=== PATIENT | male | born 1970 ===

== ENCOUNTER 2017-08-14 04:11 | Emergency (ER) | payer SELFPAY ==
--- NOTE | 2017-08-14 04:36 | ED PDOC ---
HPI: Psych/Substance Abuse Time Seen by Provider: 08/14/17 04:18 Chief Complaint (Nursing): Alcohol Ingestion Chief Complaint (Provider): Alcohol ingestion History Per: Patient History/Exam Limitations: no limitations Onset/Duration Of Symptoms: Hrs (prior to arrival) Additional History Per: EMS Additional Complaint(s): Rudy Medina is a 46 year old male, with no past medical history, who was brought to the emergency department for evaluation of alcohol use. Patient claims that he drank much earlier in the night and states that EMS picked him up since he is homeless and its raining. Patient denies any medical complaints. PMD: None provided. Past Medical History Reviewed: Historical Data, Nursing Documentation, Vital Signs Vital Signs: Last Vital Signs Temp 97.9 F 08/14/17 04:21 Pulse 72 08/14/17 04:21 Resp 17 08/14/17 04:21 BP 146/90 08/14/17 04:21 Pulse Ox 98 08/14/17 04:21 - Family History Family History: States: Unknown Family Hx - Social History Alcohol: Social - Allergies Allergies/Adverse Reactions: Allergies Allergy/AdvReac Type Severity Reaction Status Date / Time No Known Allergies Allergy Verified 08/14/17 04:24 Review of Systems ROS Statement: Except As Marked, All Systems Reviewed And Found Negative Constitutional: Positive for: Other (alcohol use) Physical Exam - Reviewed Nursing Documentation Reviewed: Yes Vital Signs Reviewed: Yes - Physical Exam Appears: Positive for: Well, Non-toxic, No Acute Distress Head Exam: Positive for: ATRAUMATIC, NORMAL INSPECTION, NORMOCEPHALIC Skin: Positive for: Normal Color, Warm, Dry Eye Exam: Positive for: EOMI, Normal appearance, PERRL Neck: Positive for: Normal, Painless ROM, Supple Cardiovascular/Chest: Positive for: Regular Rate, Rhythm. Negative for: Murmur Respiratory: Positive for: Normal Breath Sounds. Negative for: Respiratory Distress Gastrointestinal/Abdominal: Positive for: Normal Exam, Bowel Sounds, Soft Back: Positive for: Normal Inspection (No midlines tenderness). Negative for: L CVA Tenderness, R CVA Tenderness Extremity: Positive for: Normal ROM. Negative for: Pedal Edema, Deformity, Swelling Lymphatic: Positive for: Deferred Neurologic/Psych: Positive for: Alert, Oriented, Gait (steady). Negative for: Motor/Sensory Deficits - ECG O2 Sat by Pulse Oximetry: 98 (RA) Pulse Ox Interpretation: Normal Medical Decision Making Medical Decision Making: Initial Impression: 46 year old female for alcohol use Initial Plan: -No medical concerns -Patient is stable and ready for discharge. Disposition - Clinical Impression Clinical Impression: Alcohol use - Disposition Disposition Time: 04:40 Condition: STABLE Forms: [facility] (Iranian) Print Language: ALBANIAN
[2017-08-14 04:39] VITALS: BP 146/90; PULSE 72; RESP 17; TEMP 97.9; O2SAT 98
== END 2017-08-14 06:43 | disposition home or self-care (01) ==
LOC: H.ER 04:11
DX: Z59.0 Homelessness (principal)